=== PATIENT | female | born 1940 | race Caucasian/White ===

== ENCOUNTER 2021-06-21 08:59 | Day surgery (SDC) | payer MEDICARE, BC ==
[~2021-06-21] VITALS: Ht 160 cm; Wt 49.0 kg
[2021-06-21 09:30] VITALS: BP 105/57
[2021-06-21] MEDS ORDERED: DOCU-345 PO (09:43)
[2021-06-21] MEDS ORDERED: LORA-268 PO (09:43)
[2021-06-21] MEDS ORDERED: MORP-92 PO (09:43)
[2021-06-21] MEDS ORDERED: OXYB10TA30 PO (09:43)
[2021-06-21] MEDS ORDERED: ASPI-1475 PO (09:43)
[2021-06-21] MEDS ORDERED: FLUT1BLS3 INH (09:43)
[2021-06-21] MEDS ORDERED: SIMV5TAB58 PO (09:43)
[2021-06-21] MEDS ORDERED: ALBU90AE (09:43)
[2021-06-21] MEDS ORDERED: PROC10TA10 PO (09:43)
[2021-06-21] MEDS ORDERED: GUAI600T31 PO (09:43)
[2021-06-21] MEDS ORDERED: ONDA4TAB12 PO (09:43)
[2021-06-21] MEDS ORDERED: ALBU18HF2 (09:43)
[2021-06-21] MEDS ORDERED: HYDR-3972 PO (09:43)
[2021-06-21] MEDS ORDERED: ROFL500T7 PO (09:43)
[2021-06-21] MEDS ORDERED: TIOT4MIS2 INH (09:43)
[2021-06-21] MEDS ORDERED: IPRA3AMP31 IH (09:45)
[2021-06-21] MEDS ORDERED: normal saline 1000ml 1,000 ML IV SCH (09:45)
[2021-06-21 10:34] LABS: BASOPHILS # (AUTO) 0.1 X10'3 (0-0.2); EOSINOPHILS # (AUTO) 0.1 X10'3 (0-0.9); EOSINOPHILS % (AUTO) 1.2 % (0-6); HEMATOCRIT 32.6 % (35.0-45.0); HEMOGLOBIN 10.7 g/dl (12.0-16.0); LYMPHOCYTES # (AUTO) 0.7 X10'3 (1.1-4.8); LYMPHOCYTES % (AUTO) 8.8 % (21-51); MEAN CORPUSCULAR HEMOGLOBIN 28.7 PG (27.0-31.0); MEAN CORPUSCULAR HGB CONC 32.9 g/dL (33.0-36.5); MEAN CORPUSCULAR VOLUME 87.3 FL (78-98); MEAN PLATELET VOLUME 7.4 FL (7.4-10.4); MONOCYTES # (AUTO) 0.7 X10'3 (0-0.9); MONOCYTES % (AUTO) 8.1 % (2-12); NEUTROPHILS # (AUTO) 6.5 X10'3 (1.8-7.7); NEUTROPHILS % (AUTO) 80.9 % (42-75); PLATELET COUNT 477 X10'3 (140-440); RED BLOOD COUNT 3.74 X10'6 (4.20-5.60); RED CELL DISTRIBUTION WIDTH 14.8 % (11.5-14.5); WHITE BLOOD COUNT 8.1 X10'3 (4.5-11.0)
[2021-06-21 10:57] LABS: PARTIAL THROMBOPLASTIN TIME 24 SECONDS (22-32)
--- NOTE | 2021-06-21 11:00 | NUR ---
Procedure cancelled by
== END 2021-06-21 11:15 | disposition home or self-care (01) ==
LOC: SSTAY O 08:59
PROVIDERS: ATTEND Radiology Diagnostic Radiology
DX: C78.7 Secondary malignant neoplasm of liver and intrahepatic bile duct (principal); Z53.8 Procedure and treatment not carried out for other reasons
CPT/HCPCS: 36415; 85025; 85610; 85730

== ENCOUNTER 2021-06-30 08:37 | Day surgery (SDC) | payer MEDICARE, BC ==
[~2021-06-30] VITALS: Ht 165.1 cm; Wt 49.4 kg
[2021-06-30] VITALS (14 sets, daily range): BP systolic 125–165; BP diastolic 57–111
[~2021-06-30 08:37] MED LIST: ALBU90AE; ASPI-1475 PO; DOCU-345 PO; FLUT1BLS3 INH; GUAI600T31 PO; HYDR-3972 PO; IPRA3AMP31 IH; LORA-268 PO; MORP-92 PO; ONDA4TAB12 PO; OXYB10TA30 PO; PROC10TA10 PO; ROFL500T7 PO; SIMV5TAB58 PO; TIOT4MIS2 INH
[2021-06-30] MEDS ORDERED: normal saline 1000ml 1,000 ML IV SCH ×2 (09:05→11:00)
[2021-06-30 09:57] LABS: BASOPHILS % (AUTO) 0.3 % (0-1); EOSINOPHILS # (AUTO) 0.1 X10'3 (0-0.9); EOSINOPHILS % (AUTO) 1.3 % (0-6); HEMATOCRIT 34.2 % (35.0-45.0); HEMOGLOBIN 11.2 g/dl (12.0-16.0); LYMPHOCYTES # (AUTO) 0.5 X10'3 (1.1-4.8); LYMPHOCYTES % (AUTO) 8.2 % (21-51); MEAN CORPUSCULAR HEMOGLOBIN 28.7 PG (27.0-31.0); MEAN CORPUSCULAR HGB CONC 32.8 g/dL (33.0-36.5); MEAN CORPUSCULAR VOLUME 87.4 FL (78-98); MEAN PLATELET VOLUME 7.4 FL (7.4-10.4); MONOCYTES # (AUTO) 0.5 X10'3 (0-0.9); MONOCYTES % (AUTO) 7.8 % (2-12); NEUTROPHILS # (AUTO) 5.3 X10'3 (1.8-7.7); NEUTROPHILS % (AUTO) 82.4 % (42-75); PLATELET COUNT 428 X10'3 (140-440); RED BLOOD COUNT 3.91 X10'6 (4.20-5.60); RED CELL DISTRIBUTION WIDTH 14.6 % (11.5-14.5); WHITE BLOOD COUNT 6.5 X10'3 (4.5-11.0)
[2021-06-30] MEDS ORDERED: fentaNYL/PF 50MCG/1 ML 2ML syringe ONE (11:05)
[2021-06-30] MEDS ORDERED: midazolam 1 mg/ML 2ml injection ONE (11:05)
[2021-06-30 15:20] LABS: ALBUMIN 3.1 G/DL (3.4-5.0); ANION GAP 8 (8-16); BLOOD UREA NITROGEN 6 MG/DL (7-18); CALCIUM 8.7 MG/DL (8.5-10.1); CHLORIDE 97 MMOL/L (99-107); CREATININE 0.46 MG/DL (0.40-0.90); GLUCOSE 102 MG/DL (70-104); SODIUM 135 MMOL/L (135-145); TOTAL CARBON DIOXIDE 30.5 MMOL/L (24-32); eGFR > 90 ML/MIN
== END 2021-06-30 14:55 | disposition home or self-care (01) ==
LOC: SSTAY O 08:37
PROVIDERS: ATTEND Radiology Diagnostic Radiology
DX: C78.7 Secondary malignant neoplasm of liver and intrahepatic bile duct (principal); C76.0 Malignant neoplasm of head, face and neck; Z79.82 Long term (current) use of aspirin; Z79.899 Other long term (current) drug therapy
CPT/HCPCS: 36415; 47000; 77012; 80048; 85025; 85610; 99152; J2250; J3010; 99153